=== PATIENT | female | born 2000 | race Caucasian/White ===

== ENCOUNTER 2021-11-02 05:19 | Emergency (ER) | payer OTHER ==
[~2021-11-02] VITALS: Ht 157.5 cm; Wt 117.9 kg
[2021-11-02 06:05] VITALS: BP_SYST 116
[2021-11-02] MEDS ORDERED: HYDROmorphone 1 MG/ML INJ. CARTRIDGE IVP ONE ×3 (07:00→15:00)
--- NOTE | 2021-11-02 07:00 | NUR ---
ER Dr. Jacobo at bedside in [facility] examining patient.
--- NOTE | 2021-11-02 08:45 | NUR ---
Patient to ER bed 2 to gown for evaluation. Side rails up.
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
[2021-11-02] MEDS ORDERED: HYDROmorphone 1 MG/ML INJ. CARTRIDGE ONE (09:10)
[2021-11-02 09:11] LABS: BASOPHILS % (AUTO) 0.3 % (0.0-2.0); HEMATOCRIT 38.2 % (36-48); LYMPHOCYTES # (AUTO) 1.7 K/uL (1.0-5.5); LYMPHOCYTES % (AUTO) 12.1 % (20.5-51.5); MEAN CORPUSCULAR HEMOGLOBIN 29 pg (27-31); MEAN CORPUSCULAR HGB CONC 34 % (32-36); MEAN CORPUSCULAR VOLUME 84 fL (79.0-98.0); MONOCYTES # (AUTO) 0.7 K/uL (0.0-1.0); MONOCYTES % (AUTO) 5.5 % (1.7-9.3); NEUTROPHILS # (AUTO) 11.2 K/uL (1.8-7.7); NEUTROPHILS % (AUTO) 82.1 % (40.0-70.0); PLATELET COUNT (AUTO) 445 K/uL (130-430); RED BLOOD CELL COUNT(AUTO) 4.53 MIL/uL (4.2-6.2); RED CELL DISTRIBUTION WIDTH 14.9 % (9.0-15.0); WHITE BLOOD COUNT (AUTO) 13.6 K/uL (4.8-10.8)
[2021-11-02 09:32] LABS: CALCIUM 8.4 mg/dL (8.4-11.0); CREATININE 0.8 mg/dL (0.55-1.30); POTASSIUM 3.9 mmol/L (3.5-5.1)
[2021-11-02 09:38] LABS: ALBUMIN 3.4 g/dL (3.4-4.8); TOTAL BILIRUBIN 0.2 mg/dL (0.0-1.0)
--- NOTE | 2021-11-02 09:41 | NUR ---
Assisting primary RN, medicated per MAY.
--- NOTE | 2021-11-02 10:59 | NUR ---
assumed care to pt at this time. report recieved from josé antonio. pt is resting comfortably at bedside, denies pain. marie martin. jason.
--- NOTE | 2021-11-02 14:46 | NUR ---
dr hernandez at bedside, ortho
[2021-11-02] MEDS ORDERED: IBUP-1969 PO (14:57)
[2021-11-02] MEDS ORDERED: HYDR-3927 PO ×4 (14:57→15:04)
[2021-11-02] MEDS ORDERED: ONDANSETRON HCL 4 MG/2 ML VIAL IVP ONE (15:30)
[2021-11-02 16:06] VITALS: BP_SYST 139
--- NOTE | 2021-11-02 16:07 | NUR ---
Patient given written and verbal discharge instructions and verbalizes understanding. ER MD discussed with patient the results and treatment provided. Patient in stable condition. ID arm band removed. IV catheter removed intact and dressing applied, no active bleeding. Rx of [place] given. Patient educated on pain management and to follow up with PMD. Pain Scale 0/10. Opportunity for questions provided and answered. Medication side effect fact sheet provided.
== END 2021-11-02 16:06 | disposition home or self-care (01) ==
LOC: SED 05:19
DX: S82.841A Displaced bimalleolar fracture of right lower leg, initial encounter for closed fracture (principal); J45.909 Unspecified asthma, uncomplicated; Z79.899 Other long term (current) drug therapy; V49.40XA Driver injured in collision with unspecified motor vehicles in traffic accident, initial encounter; Y93.89 Activity, other specified; Y92.89 Other specified places as the place of occurrence of the external cause; Y99.8 Other external cause status
CPT/HCPCS: 99284; 96374; 29515; 96375; 80053; 84703; 85025; 36415; 73502; 73560; 73600; 81025; 96376; J2405; J1170